=== PATIENT | male | born 1985 | race Caucasian/White ===

== ENCOUNTER 2023-06-10 09:24 | Emergency (ER) | payer MEDICARE, MEDICAID, SELFPAY ==
[2023-06-10] VITALS (13 sets, daily range): BP systolic 104–154; BP diastolic 82–110; PULSE 0–94; RESP 14–28; TEMP 36.7; O2SAT 96–99; BMI 27.1
--- NOTE | 2023-06-10 09:26 | XR_ITS ---
WS: [id number] PORTABLE CHEST HISTORY: cp COMPARISON: None available. Lungs are clear and well expanded. No pleural effusion or pneumothorax. Cardiac size: Normal. Mediastinum/Aorta: Normal mediastinum. No osseous abnormality seen. IMPRESSION: Unremarkable portable chest.
--- NOTE | 2023-06-10 09:26 | ECG_ITS ---
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 Measurements Intervals [place] Rate: 86 P: 56 MN: 138 QRS: 34 QRSD: 98 T: 42 QT: 370 QTc: 443 Interpretive Statements SINUS RHYTHM No previous ECG available for comparison Electronically Signed On 06-10-2023 21:31:15 CDT by Dyan Robles M.D. [id number]
--- NOTE | 2023-06-10 09:36 | XR_ITS ---
WS: [id number] XR KUB [id number] REASON FOR EXAM: cp FINDINGS: Suboptimal positioning and motion artifact degrades diagnostic quality. Grossly, no free air or signi ficant bowel distention. IMPRESSION: Limited exam with no acute abnormality.
[2023-06-10 09:41] LABS: Basophils % 0.2 %; Eosinophils # 0.3 10^3/uL (0.0-0.8); Eosinophils % 1.4 %; Hematocrit 47.5 % (37-53); Lymphocytes # 1.9 10^3/uL (0.8-4.8); Lymphocytes % 10.5 %; Mean Corpuscular HGB Conc 34.1 g/dL (30-55); Mean Corpuscular Hemoglobin 30.9 pg (27-33); Mean Corpuscular Volume 90.6 fl (82-101); Mean Platelet Volume 10.4 fL (7.4-10.4); Monocytes # 1.1 10^3/uL (0.2-0.9); Monocytes % 6.1 %; Neutrophils # 15.07 10^3/uL (1.8-7.7); Neutrophils % 81.5 %; Nucleated Red Blood Cells % 0 %; Platelet Count 232 10^3/cmm (157-399); Red Blood Count 5.24 10^6/uL (3.85-5.65); Red Cell Distribution Width 12.9 % (12.1-15.1); White Blood Count 18.48 10^3/uL (3.29-11.43)
--- NOTE | 2023-06-10 09:58 | CT_ITS ---
WS: [id number] CTA CHEST ABDOMEN AND PELVIS TECHNIQUE: Noncontrast plus contrast enhanced CTA of the chest, abdomen, and pelvis with coronal and sagittal reformatted images and additional MIP Images. CLINICAL INFORMATION: cp COMPARISON: None. DLP: 1134.[address] scans at [facility] use at least one of these dose optimization techniques: automated e xposure control; mA and/or kV adjustment per patient size (includes targeted exams where dose is matc hed to clinical indication); or iterative reconstruction. FINDINGS: Lungs are well aerated. No acute pulmonary infiltrates. Slight bibasal atelectasis. Proximal main pul monary arteries appear normal. Normal segmental and subsegmental pulmonary arteries. No evidence of p ulmonary embolus. Normal caliber thoracic aorta.Mild thoracic kyphosis. Endplate Schmorl's nodes in the midthoracic spi ne. Normal caliber abdominal aorta. Diffuse fatty filtration of the liver. Normal portal vein and splenic vein. Normal spleen. Normal GE junction. Normal gallbladder. Celiac and SMA are patent. Adrenal glan ds are normal. Normal renal parenchymal enhancement. No hydronephrosis. Tiny fat-containing umbilical hernia. No hydronephrosis in either kidney. IMPRESSION: 1. Proximal main pulmonary arteries are normal. No evidence of pulmonary embolus. 2. Normal caliber thoracic aorta. 3. Normal caliber abdominal aorta. 4. Mild diffuse fatty filtration of the liver. 5. Both lungs are well aerated. 6. Tiny fat-containing umbilical hernia. 7. No acute findings in the abdomen or pelvis.
--- NOTE | 2023-06-10 09:58 | W.ED.CHESTPA ---
HPI - Chest Pain General: Chief Complaint: Chest Pain Stated Complaint: chest pain Time Seen by Provider: 06/10/23 09:26 Source: patient Mode of arrival: ambulatory Limitations: no limitations History of Present Illness: 37-year-old male states he has been having chest pain since early this morning states sharp pain in the center of his chest with some slight epigastric pain as well. He is also had some shortness of breath. He does have a recent ankle fracture he is scheduled to have surgery on. Denies any fevers denies any cough denies any vomiting he has had some constipation he has been on hydrocodone for his ankle Associated symptoms: Reports abdominal pain; Deny dyspnea, fever(s), nausea or vomiting Review of Systems Const: Denies: fever(s) or chills ENMT: Denies: throat pain or dental pain Card: Reports: chest pain Resp: Denies: dyspnea GI: Reports: abdominal pain and constipation; Denies: nausea, vomiting or diarrhea : Denies: dysuria Musc: Denies: neck pain or back pain Skin/Breast: Denies: rash Neuro: Denies: headache(s) Physical Exam Const: COMMON NORMALS: no acute distress, patient oriented x3 and healthy appearing HENMT: COMMON NORMALS: normocephalic and atraumatic HEAD & SCALP: normocephalic and atraumatic Neck/C-Spine: COMMON NORMALS: full ROM and supple Chest: COMMONS NORMALS: normal inspection of the chest and normal palpation of entire chest wall Resp: COMMON NORMALS: normal respiratory effort, No retractions, No use of accessory muscles and clear to auscultation bilaterally AUSCULTATION: clear to auscultation bilaterally Cardio: COMMON NORMALS: regular rate, regular rhythm and No murmurs present (Cardio) RATE: regular rate RHYTHM: regular rhythm GI: COMMON NORMALS: Normal to inspection, nondistended, normoactive bowel sounds present, Soft to palpation, non-tender and no masses PALPATION: Yes Soft to palpation Extremity: COMMON NORMALS: normal to inspection and full ROM Neuro: COMMON NORMALS: patient oriented x3, moves all extremities and no focal motor deficits Psych: COMMON NORMALS: mental status grossly normal, Normal thought process present and cooperative THOUGHT PROCESS: Normal thought process present Skin: COMMON NORMALS: no rashes or lesions noted and no wounds GENERAL SKIN EXAM: no rashes or lesions noted Course Vital Signs: Vital signs: Vital Signs Temperature 98.1 F 06/10/23 09:28 Pulse Rate 79 06/10/23 11:30 Respiratory Rate 14 06/10/23 11:30 Blood Pressure 104/82 06/10/23 11:30 Pulse Oximetry 96 06/10/23 11:30 Oxygen Delivery Me thod Room Air 06/10/23 10:36 MDM - Chest Pain Medical Decision Making Patient presents for chest pains atypical in nature it is worse with deep breaths and likely a pleuritis CT scan here showed no acute abnormalities both troponins here are normal he is stable for discharge he is to follow-up with PCP and return if worsening he understands agrees to plan. Medical Records I reviewed the patient's medical records. Lab Data I reviewed the patient's lab results. 06/10/23 09:30 06/10/23 09:30 Laboratory Results WBC 18.48 10^3/uL (3.29-11.43) H 06/10/23 09:30 RBC 5.24 10^6/uL (3.85-5.65) 06/10/23 09:30 Hgb 16.20 g/dL (11.27-16.99) 06/10/23 09:30 Hct 47.5 % (37-53) 06/10/23 09:30 MCV 90.6 fl (82-101) 06/10/23 09:30 MCH 30.9 pg (27-33) 06/10/23 09:30 MCHC 34.1 g/dL (30-55) 06/10/23 09:30 RDW 12.9 % (12.1-15.1) 06/10/23 09:30 Plt Count 232 10^3/cmm (157-399) 06/10/23 09:30 MPV 10.4 fL (7.4-10.4) 06/10/23 09:30 Neut % (Auto) 81.5 % 06/10/23 09:30 Lymph % (Auto) 10.5 % 06/10/23 09:30 [place] % (Auto) 6.1 % 06/10/23 09:30 Eos % (Auto) 1.4 % 06/10/23 09:30 Baso % (Auto) 0.2 % 06/10/23 09:30 Neut # (Auto) 15.07 10^3/uL (1.8-7.7) H 06/10/23 09:30 Lymph # (Auto) 1.9 10^3/uL (0.8-4.8) 06/10/23 09:30 [place] # (Auto) 1.1 10^3/uL (0.2-0.9) H 06/10/23 09:30 Eos # (Auto) 0.3 10^3/uL (0.0-0.8) 06/10/23 09:30 Baso # (Auto) 0.0 10^3/uL (0.0-0.1) 06/10/23 09:30 Nucleated RBC % (auto) 0 % 06/10/23 09:30 Nucleated RBCs # 0.0 /100WBC 06/10/23 09:30 D-Dimer 0.35 ug/mLFEU (0-0.59) 06/10/23 09:30 Sodium 139 mmol/L (136-145) 06/10/23 09:30 Potassium 4.5 mmol/L (3.5-5.1) 06/10/23 09:30 Chloride 100 mmol/L (98-107) 06/10/23 09:30 Carbon Dioxide 28 mmol/L (22-29) 06/10/23 09:30 Anion Gap 15.5 (5-19) 06/10/23 09:30 BUN 11 mg/dL (6-20) 06/10/23 09:30 Creatinine 1.0 mg/dL (0.7-1.2) 06/10/23 09:30 GFR Calculation 83.6 mL/min (90-130) L 06/10/23 09:30 Glucose 98 mg/dL (65-115) 06/10/23 09:30 Calculated Osmolality 287 mOsm/kg (285-295) 06/10/23 09:30 Calcium 9.9 mg/dL (8.5-10.5) 06/10/23 09:30 Total Bilirubin 0.3 mg/dL (0.15-1.2) 06/10/23 09:30 AST 11 U/L (0-40) 06/10/23 09:30 ALT 15 U/L (0-41) 06/10/23 09:30 Alkaline Phosphatase 70 U/L (40-130) 06/10/23 09:30 Troponin T Baseline 6 ng/L (0-15) 06/10/23 09:30 Troponin T 120 Minute 6.00 ng/L (0-15) 06/10/23 11:35 Total Protein 8.0 g/dL (6.6-8.7) 06/10/23 09:30 Albumin 5.4 g/dL (3.5-5.2) H 06/10/23 09:30 Globulin 2.6 g/dL (1.3-4.6) 06/10/23 09:30 Lipase 27 U/L (13-60) 06/10/23 09:30 All radiology interpretation(s) finalized by discharge EKG Data EKG 1: I personally reviewed and interpreted this EKG as follows: EKG interpretation date: 06/10/23 EKG interpretation time: 09:27 Interpretation: nsr hr [address] or t wave abnormalities qrs 98 qtc 413 Discharge Plan Discharge Patient Disposition: Home Clinical Impression: Chest pain Condition: Stable Prescriptions: New Naprosyn 500 mg tablet 500 mg PO BID PRN (Reason: pain) Qty: 20 0RF No Action hydrocodone-acetaminophen 5-325 mg tablet 1 tab PO Q4H PRN (Reason: Pain) Pepto-Bismol 262 mg/15 mL Suspension See Rx Instructions .ROUTE .COMPLEX Rx Instructions: 2 mouthful's twice as a one time dose ibuprofen 200 mg Tablet 600 mg PO Q6H PRN (Reason: Pain) Discharge Orders: Discharge ED (Routine); Ordered 06/10/23 Ordered By: Charito Jones Discharge Diet: Advance as tolerated Discharge Activity: Resume usual activity Patient Instructions: Chest Pain (ED) Coding Level of Care Code ED Administrative Support Coordinator for Samanthag Tanna
[2023-06-10] MEDS: ondansetron 2 mg/ML SDV 2 mL 4 MG IVP (10:02)
[2023-06-10] MEDS: morphine 4 mg/mL SDV 1 mL IVP ×2 (10:05→12:37)
[2023-06-10 10:06] LABS: Alanine Aminotransferase 15 U/L (0-41); Albumin Level 5.4 g/dL (3.5-5.2); Alkaline Phosphatase 70 U/L (40-130); Anion Gap 15.5 (5-19); Aspartate Amino Transferase 11 U/L (0-40); Blood Urea Nitrogen 11 mg/dL (6-20); Calcium 9.9 mg/dL (8.5-10.5); Carbon Dioxide 28 mmol/L (22-29); Chloride 100 mmol/L (98-107); Globulin 2.6 g/dL (1.3-4.6); Glomerular Filtration Rate 83.6 mL/min (90-130); Glucose 98 mg/dL (65-115); Lipase 27 U/L (13-60); Osmolality Calculated 287 mOsm/kg (285-295); Potassium 4.5 mmol/L (3.5-5.1); Sodium 139 mmol/L (136-145); Total Bilirubin 0.3 mg/dL (0.15-1.2)
[2023-06-10 10:16] LABS: Troponin(5th) Baseline 6 ng/L (0-15)
[2023-06-10 10:40] LABS: D Dimer 0.35 ug/mLFEU (0-0.59)
[2023-06-10] MEDS: iohexol 350 mg/mL 500 mL Btl (per mL) IV (10:42)
--- NOTE | 2023-06-10 11:22 | ECG_ITS ---
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 Measurements Intervals [place] Rate: 84 P: 54 NV: 128 QRS: 39 QRSD: 92 T: 61 QT: 348 QTc: 413 Interpretive Statements SINUS RHYTHM Compared to ECG 06/10/2023 09:27:43 No significant changes Electronically Signed On 06-10-2023 21:37:36 CDT by Dyan Robles M.D. [id number]
[2023-06-10 12:32] LABS: Troponin 5 2HR Delta 0 ABS# (0-10)
== END 2023-06-10 12:45 | disposition home or self-care (01) ==
PROVIDERS: Emergency Provider Emergency Medicine
DX: R07.9 Chest pain, unspecified (principal)
CPT/HCPCS: 36415; 71045; 71275; 74018; 74177; 80053; 83690; 84484; 85025; 85378; 93005; 96374; 96375; 96376; 99285; J2270; J2405; Q9967

== ENCOUNTER → 2025-07-14 14:17 | Outpatient (BNVA) | payer MEDICARE, MEDICAID, SELFPAY | PROVIDERS: PCP Nurse Practitioner Family; Visit Provider Nurse Practitioner Family | DX: G56.01 Carpal tunnel syndrome, right upper limb (principal) | CPT/HCPCS: 73130 ==